=== PATIENT | female | born 1980 | race Two or more races ===

== ENCOUNTER 2020-01-17 12:36 | Emergency (ER) | payer OTHER ==
[~2020-01-17] VITALS: Ht 165.1 cm; Wt 78.5 kg
[2020-01-17] MEDS ORDERED: PEPCID AC20 MG PO (17:23)
[2020-01-17] MEDS ORDERED: INTESTINEX680 M2 PO (17:23)
[2020-01-17] MEDS ORDERED: AZITHROMYCIN250 MG PO (17:23)
== END 2020-01-17 16:00 | disposition home or self-care (01) ==
LOC: ER 12:36
DX: R10.11 Right upper quadrant pain (principal); B96.0 Mycoplasma pneumoniae [M. pneumoniae] as the cause of diseases classified elsewhere; Z03.818 Encounter for observation for suspected exposure to other biological agents ruled out